=== PATIENT | female | born 1945 | race Caucasian/White ===

== ENCOUNTER 2017-02-05 14:15 | Outpatient (CLI) | payer MEDICARE, BC | END 2017-02-05 23:59 | disposition home or self-care (01) | LOC: WOU 14:15 | PROVIDERS: ATTEND Podiatrist Foot & Ankle Surgery | DX: S93.525A Sprain of metatarsophalangeal joint of left lesser toe(s), initial encounter (principal); X50.3XXA Overexertion from repetitive movements, initial encounter; X50.9XXA Other and unspecified overexertion or strenuous movements or postures, initial encounter; Y93.01 Activity, walking, marching and hiking; Y92.89 Other specified places as the place of occurrence of the external cause; M20.42 Other hammer toe(s) (acquired), left foot; M65.9 Synovitis and tenosynovitis, unspecified | CPT/HCPCS: G0463 ==